=== PATIENT | male | born 1975 | race Caucasian/White ===

== ENCOUNTER 2017-01-14 12:35 | Emergency (ER) | payer OTHER ==
[2017-01-14 13:09] LABS: WBC 24.2 10x3/uL (4.8-10.8)
[2017-01-14 13:10] LABS: HEMATOCRIT 42.3 % (42.0-54.0); HEMOGLOBIN 15.2 g/dL (13.5-17.5); MCHC 35.9 g/dL (31.0-37.0); MCV 91.8 fL (80.0-100.0); PLATELET COUNT 253 10x3/uL (130-400); RBC 4.61 10x6/uL (4.20-6.10); RDW 13.4 % (11.5-14.5)
[2017-01-14 13:14] LABS: ALBUMIN 4.3 g/dL (3.4-5.0); ANION GAP 16.4 mmol/L (8-16); BILIRUBIN - TOTAL 1.13 mg/dL (0.2-1.3); CALCIUM 9.9 mg/dL (8.5-10.1); CARBON DIOXIDE 24.1 mmol/L (21.0-32.0); CREATININE - SERUM 1.7 mg/dL (0.6-1.3); POTASSIUM - SERUM 3.5 mmol/L (3.5-5.1); PROTEIN - SERUM 8.6 g/dL (6.4-8.2)
[2017-01-14 13:19] LABS: APPEARANCE CLEAR (CLEAR); BILIRUBIN NEGATIVE (NEGATIVE); COLOR YELLOW (YELLOW); GLUCOSE NEGATIVE (NEGATIVE); KETONE SMALL mg/dL (NEGATIVE); NITRITE NEGATIVE (NEGATIVE); PROTEIN 1+ mg/dL (NEGATIVE); SPECIFIC GRAVITY 1.015 (1.005-1.020); UROBILINOGEN NORMAL (NORMAL)
[2017-01-14 13:20] LABS: BACTERIA FEW /hpf (NONE SEEN); EPITHELIAL CELLS 0-5 /hpf (0-5); RED CELLS - URINE 0-5 /hpf (0-5); WHITE CELLS - URINE 0-5 /hpf (0-5)
[2017-01-14 13:33] LABS: LYMPHOCYTES 9 % (15-50); MONOCYTES 1 % (2-11); NEUTROPHILS 78 % (40-80); PLATELET ESTIMATE NORMAL
[2017-02-14 08:55] VITALS: BMI 25.7
== END 2017-01-14 15:56 | disposition home or self-care (01) ==
LOC: D.ER 12:35
PROVIDERS: Emergency Medicine
DX: R10.9 Unspecified abdominal pain (principal); F17.200 Nicotine dependence, unspecified, uncomplicated

== ENCOUNTER 2017-01-16 11:56 | Inpatient (IN) | payer OTHER ==
[~2017-01-16] VITALS: Ht 182.9 cm; Wt 91.8 kg
--- NOTE | ~2017-01-16 | HEMODYNAMI ---
PATIENT:DION BENTLEY MEDICAL RECORD: [id number] : 71 LOCATION: D.2224 ADMISSION DATE: 01/16/17 Generatedon:01/25/201712:18 Patient name: DION BENTLEY Patient #: [id number] SSN: D OB: 1975 Date of study: 01/25/2017 Page: Of Hemodynamic Procedure Report Patient Data Patient Demographics Procedure consent was obtained First Name: DION Gender: Male Last Name: SHEREE : 1975 Middle Initial: E Age: 41 year(s) Patient #: [id number] Race: Unknown Additional ID: [id number] Contact details [address]: [address] [place] [address] DRIVE State: [place] City: [place] Zip code: [address] Admission Admission Data Admission Date: 01/16/2017 Admission Time: 17:01 Room #: D.2224 Procedure Procedure Types Cath Procedure Peripheral Cath Diagnostic Procedure Miscellaneous Procedure Description Procedure Date Procedure Date: 01/25/2017 Procedure Start Time: 12:08 Procedure Staff Name Function Aureliano Flores RT Monitor Demetri Ford MD Performing Physician Lorna Smith RT Scrub Sridevi Cm RN Nurse Procedure Data Cath Procedure Fluoroscopy Diagnostic fluoroscopy Total fluoroscopy Time: 0.5 time: 0.5 min min Diagnostic fluoroscopy Total fluoroscopy dose: 45 dose: 45 mGy mGy Contrast Material Contrast Material Type Amount (ml) Isovue 300 12 Procedure Medications Medication Administration Route Dosage Heparin Flush Bag 1 bags (1000units/500ml NS) Hemodynamics Rest Pre Cath Intra NCS Post Cath Medications Time Medication Route Dose Verified Delivered Reason Notes Effecti veness by by 12:09:37 Heparin Flush 1 Demetri Mosquera Bag Logan Valencia MD (1000units/500ml NS) Procedure Log Time Note 11:27:43 Aureliano Flores RT (R) (CV) sent for patient. Start room use. 11:27:53 Time tracking: Regular hours 11:27:59 Plan of Care:Hemodynamics will remain stable., Cardiac rhythm will remain stable., Comfort level will be maintained., Respiratory function will remain adequate., Patient/ family verbilizes understanding of procedure., Procedure tolerated without complication., Recovers from procedure without complications.. 11:28:05 Patient received from Med/Surg to IR Alert and oriented. Tansferred to table in Supine position. 11:28:07 Correct patient and procedure confirmed by team. 11:28:09 Signed procedure consent form obtained from patient. 11:28:10 ECG and BP/O2 sat monitors applied to patient. 11:28:11 - 11:28:11 Full Disclosure recording started 11:28:13 Pre-procedure instructions explained to patient. 11:28:14 Pre-op teaching completed and patient verbalized understanding. 11:28:15 Family unavailable. 11:28:17 Patient NPO since Midnight. 11:28:34 Patient pain scale 0/10 no pain. 11:28:39 Alarms reviewed by Keo Edmonds 11:28:48 Left abdomen area was prepped with chlora-prep and draped in sterile fashion 11:28:59 Use device set IR Diagnostic 11:29:00 Sterile Angiographic Pack opened to sterile field. 11:29:00 Bag Decanter opened to sterile field. 12:07:43 Physician arrived 12:07:44 --------ALL STOP TIME OUT------ 12:07:45 Final Timeout: patient, procedure, and site verified with staff and physician. All members of the team are in agreement. 12:07:52 Left abdomen site verified by team. 12:07:58 Sedation plan: Local Anesthetic Medication:Lidocaine 12:08:16 Procedure started. 12:09:37 Heparin Flush Bag (1000units/500ml NS) 1 bags was administered by Demetri Ford MD; ; 12:14:43 Procedure ended.(Physican Out) 12:15:00 Fluoroscopy time 00.50 minutes. 12:15:04 Fluoroscopy dose: 45 mGy 12:15:04 Flurop Dose total: 45 12:16:15 Contrast amount:Isovue 300 12ml. 12:16:16 Sharps counted by scrub and verified by R.N. 12:16:20 Insertion/operative site no bleeding no hematoma. 12:16:26 Post-op/insertion site Left Abdominal area dressed using a 4 x 4 and Tegaderm. 12:16:33 Procedure and supply charges have been captured, reviewed, submitted an d are correct. 12:16:35 Post procedure instruction explained to patient.Patient verbalizes understanding. 12:16:42 Report given to Med/Surg. 12:16:46 Patient transfered to Med/Surg with Wheelchair. 12:17:29 Full Disclosure recording stopped Device Usage Item Name Manufacture Quantity Catalog Hospital Part Current Minimal Lot# / Number Charge Number Stock Stock Serial# Code Bag Decanter Microtek 1 [id number] [employer] Sterile Cardinal 1 [id number] Angiographic Health Pack Signature Audit [place] Time Signature Unsigned Intra-Procedure 01/25/2017 Aureliano 12:18:32 PM Mark RT (R) (CV) Signatures Monitor : Aureliano Signature : Mark RT Date : Time : [place] [id number]
[2017-01-16 12:48] LABS: BASOPHILS 0 % (0-2); EOSINOPHILS 0.4 % (0-7); HEMATOCRIT 43.4 % (42.0-54.0); HEMOGLOBIN 15.8 g/dL (13.5-17.5); IMMATURE GRANULOCYTES 0.7 % (0-5); LYMPHOCYTES 4.9 % (15-50); MCH 32.8 pg (26.0-34.0); MCHC 36.4 g/dL (31.0-37.0); MCV 90.2 fL (80.0-100.0); MEAN PLATELET VOLUME 10.4 fL (7.4-10.4); MONOCYTES 13.5 % (2-11); NEUTROPHILS 80.5 % (40-80); RBC 4.81 10x6/uL (4.20-6.10); RDW 13.3 % (11.5-14.5)
[2017-01-16 12:49] LABS: PLATELET COUNT 334 10x3/uL (130-400); WBC 8.9 10x3/uL (4.8-10.8)
[2017-01-16 13:12] LABS: ALBUMIN 3.8 g/dL (3.4-5.0); ANION GAP 19.4 mmol/L (8-16); BILIRUBIN - TOTAL 0.68 mg/dL (0.2-1.3); CALCIUM 10.3 mg/dL (8.5-10.1); CREATININE - SERUM 3.1 mg/dL (0.6-1.3); POTASSIUM - SERUM 3.4 mmol/L (3.5-5.1); PROTEIN - SERUM 8.9 g/dL (6.4-8.2)
[2017-01-16 13:24] LABS: AMYLASE - SERUM 41 U/L (25-115); LIPASE 82 U/L (73-393)
[2017-01-16 14:03] LABS: APPEARANCE CLOUDY (CLEAR); COLOR DK YELLOW (YELLOW); NITRITE NEGATIVE (NEGATIVE)
[2017-01-16 14:04] LABS: AMORPHOUS SEDIMENT <1+ /lpf (NONE SEEN); BACTERIA MODERATE /hpf (NONE SEEN); BILIRUBIN NEGATIVE (NEGATIVE); EPITHELIAL CELLS 0-5 /hpf (0-5); GLUCOSE NEGATIVE (NEGATIVE); GRANULAR CAST 0-5 /lpf (NONE SEEN); HYALINE CAST OCC /lpf (NONE SEEN); KETONE SMALL mg/dL (NEGATIVE); MUCUS <1+ /lpf (NONE SEEN); PROTEIN 1+ mg/dL (NEGATIVE); RED CELLS - URINE OCC /hpf (0-5); UROBILINOGEN NORMAL (NORMAL); WHITE CELLS - URINE 0-5 /hpf (0-5)
--- NOTE | 2017-01-16 18:15 | NUR ---
RECEIVED TO ROOM 2224 FROM ER VIA . ORIENTED TO ROOM AND CALL LIGHT SYSTEM. MED REC, PHARMACY, AND HISTORY OBTAINED AND PUT IN COMPUTER. FAMILY IN ROOM. CALL LIGHT IN REACH. WILL CONTINUE WITH PLAN OF CARE.
[2017-01-16] MEDS ORDERED: FLAGYL500 MG PO (18:41)
[2017-01-16] MEDS ORDERED: FLAGYL500 MG (18:41)
[2017-01-16] MEDS ORDERED: ULTRAM50 MG PO (18:42)
--- NOTE | 2017-01-16 20:00 | NUR ---
ASSESSMENT PER ADMIT PACKET. PT NPO SALINE LOCK PATENT RT FOREARM. SITE CLEAR. SR UP X2 CALL LIGHT WITHIN REACH. UP AD EULA TO BR VOIDS IN COMMODE. ABDOMEN DISTENDED AND FIRM HYPOACTIVE BS.
[2017-01-16 20:21] VITALS: BP 142/97
--- NOTE | 2017-01-16 20:27 | NUR ---
C/O PAIN NS FLUIDS SETUP AT 200CC'S/HR. TRAINING AND DEVELOPMENT ASSISTANT OF DILAUDID SETUP WITH SETTINGS AT 0.2MG Q10MIN W/4MG Q4H L/O. INSTRUCTED PATIENT ON HOW TO USE TRAINING AND DEVELOPMENT ASSISTANT.
--- NOTE | 2017-01-16 22:00 | NUR ---
INSERTED 14FR NGT TO RT NARE WITH EASE CONNECTED TO LIWS LARGE AMOUNT OF DARK GREEN DRAINAGE RETURNED.
[2017-01-16 22:17] VITALS: BP 142/97; BMI 28.1
--- NOTE | 2017-01-16 23:45 | NUR ---
STOOD AT BEDSIDE AND VOIDED IN URINAL.RESTING IN BED AT THIS TIME. CALL LIGHT WITHIN REACH SR UP X2
[2017-01-17 03:50] VITALS: BP 139/60
[2017-01-17 05:40] LABS: HEMOGLOBIN 12.8 g/dL (13.5-17.5); MCH 32.1 pg (26.0-34.0); MCHC 35.6 g/dL (31.0-37.0); MCV 90.2 fL (80.0-100.0); MEAN PLATELET VOLUME 10.6 fL (7.4-10.4); PLATELET COUNT 289 10x3/uL (130-400); RBC 3.99 10x6/uL (4.20-6.10); RDW 13.5 % (11.5-14.5)
[2017-01-17 05:47] LABS: WBC 4.5 10x3/uL (4.8-10.8)
[2017-01-17 05:56] LABS: ANION GAP 16.3 mmol/L (8-16); CARBON DIOXIDE 24.2 mmol/L (21.0-32.0); CREATININE - SERUM 3.2 mg/dL (0.6-1.3); POTASSIUM - SERUM 3.5 mmol/L (3.5-5.1)
[2017-01-17 06:58] LABS: EOSINOPHILS 7 % (0-7); LYMPHOCYTES 26 % (15-50); MONOCYTES 13 % (2-11); NEUTROPHILS 31 % (40-80); PLATELET ESTIMATE NORMAL; ROULEAUX OCC
--- NOTE | 2017-01-17 07:10 | NUR ---
REPORT RECEIVED FROM OPERATOR ASSISTANT I CEMENTING NURSE. CALL LIGHT IN REACH.
--- NOTE | 2017-01-17 08:27 | NUR ---
ASSESSMENT COMPLETED. NGT TO LIS. OFFERED SCDs AND EXPLAINED USE. VERBALIZED UNDERSTANDING. CALL LIGHT IN REACH. WILL CONTINUE WITH PLAN OF CARE.
[2017-01-17 08:38] VITALS: BP 130/83
--- NOTE | 2017-01-17 09:31 | NUR ---
PT SEEN. NG NOTED TO RIGHT NARE DRAINING GREEN LIQUID. CANISTER CHANGED. PT STATES PAIN IS CONTROLLABLE FOR NOW WITH CARD HAND. IS NOT PASSING GAS-DOES HAS CRAMPS AT TIMES TO LOWER ABDOMINAL AREA. CURRENTLY EATING ICE CHIPS. CALL LIGHT IN REACH
--- NOTE | 2017-01-17 09:54 | NUR ---
DAVID MATOS AND LORA ROSENBAUM. CALL LIGHT IN REACH.
--- NOTE | 2017-01-17 11:15 | NUR ---
ZOSYN IVPB. BED BATH GIVEN AND LINENS CHANGED PER ARTIFICIAL FLOWER MAKER.
--- NOTE | 2017-01-17 11:28 | NUR ---
FILLED UP 2 NGT CANNISTERS IN 2 HOURS. DO NOT WANT TO TURN OFF AT THIS TIME IN FEAR THAT PATIENT WILL GET SICK AND VOMIT SO WILL START NEXT DOSE OF FLORAJEN.
[2017-01-17 12:56] VITALS: BP 138/93
--- NOTE | 2017-01-17 13:05 | NUR ---
RESTING WITH EYES CLOSED. RESP EVEN AND UNLABORED. CALL LIGHT IN REACH.
[2017-01-17 13:27] VITALS: Ht 182.9 cm; Wt 91.8 kg
--- NOTE | 2017-01-17 14:32 | NUR ---
MAGALY NOTE: CM CALLED THE [facility] BED CONTROL AND THEY STATED THAT THEY HAD NO BEDS AND TO CALL TOMORROW.
--- NOTE | 2017-01-17 15:35 | NUR ---
CUP OF ICE TAKEN TO PATIENT PER HIS REQUEST.
--- NOTE | 2017-01-17 15:57 | NUR ---
IV FLAGYL. LOW GRADE FEVER OF 100.1. WILL GIVE INCENTIVE SPIROMETER TO USE TO HELP PREVENT PNEUMONIA.
--- NOTE | 2017-01-17 16:16 | NUR ---
INCENTIVE SPIROMETER GIVEN TO PATIENT AND EXPLAINED USE WITH RETURN DEMONSTRATION.
[2017-01-17 16:29] VITALS: BP 149/97
--- NOTE | 2017-01-17 18:56 | NUR ---
IVPB ZOSYN. NO CHANGES IN INITIAL ASSESSMENT. CALL LIGHT IN REACH. FAMILY IN ROOM. WILL CONTINUE WITH PLAN OF CARE.
[2017-01-17 20:00] VITALS: BP 143/97
--- NOTE | 2017-01-17 23:22 | NUR ---
REC'D. AT [facility]. SITTING IN UPRIGHT POSITION.NG TUBE TO LOW INTERMITT.SUCTION. HAS 3 CUPS ICE AT BEDSIDE. STATES THEY SAID I COULD HAVE ALL THE ICE I WANTED.EXPLAINED USUALLY THEY SAY SPARINGLY TO MOISTEN YOUR MOUTH.WILL CONTINUE TO MONITOR FOR ANY CHGES.AND FOLLOW CURRENT PLAN OF CARE.
[2017-01-18] VITALS: BP 146/84
[2017-01-18 04:00] VITALS: BP 129/84
--- NOTE | 2017-01-18 05:42 | NUR ---
PATIENT RESTING IN BED WITH EYES CLOSED AND NO VISIBLE SIGNS OF DISTRESS. BED IN LOWEST POSITION AND CALL LIGHT WITHIN REACH.
[2017-01-18 06:05] LABS: BASOPHILS 0.2 % (0-2); EOSINOPHILS 3.9 % (0-7); HEMOGLOBIN 11.9 g/dL (13.5-17.5); IMMATURE GRANULOCYTES 0.6 % (0-5); LYMPHOCYTES 14.2 % (15-50); MCV 91.4 fL (80.0-100.0); MEAN PLATELET VOLUME 10.4 fL (7.4-10.4); MONOCYTES 21.6 % (2-11); NEUTROPHILS 59.5 % (40-80); PLATELET COUNT 287 10x3/uL (130-400); RBC 3.72 10x6/uL (4.20-6.10); RDW 13.8 % (11.5-14.5); WBC 5.1 10x3/uL (4.8-10.8)
[2017-01-18 06:36] LABS: CALCIUM 8.8 mg/dL (8.5-10.1); CARBON DIOXIDE 22.2 mmol/L (21.0-32.0); POTASSIUM - SERUM 3.2 mmol/L (3.5-5.1)
[2017-01-18 06:44] LABS: CREATININE - SERUM 2.3 mg/dL (0.6-1.3)
--- NOTE | 2017-01-18 07:25 | NUR ---
REPORT RECEIVED FROM COMMUNITY ENGAGEMENT LEADER NURSE. CALL LIGHT IN REACH.
--- NOTE | 2017-01-18 08:30 | NUR ---
ASSESSMENT COMPLETED. REFUSES SCDs. CALL LIGHT IN REACH. WILL CONTINUE WITH PLAN OF CARE.
[2017-01-18 08:36] VITALS: BP 144/95
--- NOTE | 2017-01-18 09:18 | NUR ---
CM REASSESSMENT NOTE: CM CALLED AND SPOKE TO [facility] AT [place] AND NO BEDS ARE AVAILABLE AT THIS TIME. [facility] ASKED FOR DR. CALIXTO NUMBER IN CASE A DOC TO DOC IS NEEDED FOR TRANSFER WHEN BED BECOMES AVAILABLE.
--- NOTE | 2017-01-18 10:30 | NUR ---
MEDS ADMINISTERED PER ORDER. CALL LIGHT IN REACH
--- NOTE | 2017-01-18 11:48 | NUR ---
2ND BAG OF POTASSIUM INITIATED. FLORAJEN PO WITH SIP OF WATER. NGT OFF FOR NOW.
--- NOTE | 2017-01-18 13:57 | NUR ---
PT NOTE-NG CANISTER CHANGED-800 CC LIQ GREEN DRAINAGE NOTED. NG TO RIGHT NARES- PT STATES HAD BM X 2 YESTERDAY-BOWEL SOUNDS HEARD A "TINKLING" SOUND IN ALL QUADS. SURGICAL COORDINATOR IN USE-STATES PAIN IN CONTROLLED. CALL LIGHT IN REACH
[2017-01-18 14:20] VITALS: BP 142/88
--- NOTE | 2017-01-18 14:40 | NUR ---
IV FLUIDS CHANGED PER ORDER. 3RD ABG OF KCL INITIATED.
--- NOTE | 2017-01-18 14:50 | NUR ---
REPORT GIVEN TO ERIC BURCIAGA.
--- NOTE | 2017-01-18 15:45 | NUR ---
PT C/O DISCOMFORT IN BACK OF THROAT. NG CHECKED WITH AIR-TUBE IN BACK OF THROAT. NG ADVANCED PT SIPPED WATER. IMMEDIATE RETURN OF GREEN LIQ NOTED APPROX. 400CC. PT STATES HE FEELS BETTER
[2017-01-18 16:23] VITALS: BP 142/95
--- NOTE | 2017-01-18 16:24 | NUR ---
Patient Name: DION BENTLEY Admission Status: ER Accout number: [id number] Admission Date: 01-16-2017 : 1975 Admission Diagnosis:DVTRCLI OF INTEST, PART UNSP, W/O PERF OR ABSCESS W/O B Attending: RODRICK GALLEGOS Current LOS: 2 Anticipated DC Date: Planned Disposition: Primary Insurance: [employer] Discharge Planning Comments: CM MET WITH PATIENT REGARDING D/C NEEDS AND PLANS. PATIENT STATED HE LIVES ALONE AND HIS FRIEND (PETER) WILL BE DRIVING HIM HOME AT DISCHARGE. PATIENT STATED HE HAS NO STEPS TO ENTER HOME AND HAS STAIRS INSIDE WITH RAILING. [facility] [place] AND PHARMACY IS [email or web address] ON [address]. PATIENT IS INDEPENDENT WITH HIS CARE AND HAS NO DME AT HOME. PATIENT REFUSED HOME HEALTH AT THIS TIME. CM WILL CONTINUE TO FOLLOW PATIENT WITH D/C NEEDS AND PLANS. PCP [facility] ON [address]- [phone] PETER (FRIEND) [phone] Ceramics Machine Operator: Harper Wan Is the patient Alert and Oriented? Yes 0 * How many steps to enter\exit or inside your home? 0 0 * PCP [facility] 0 * Pharmacy [email or web address] ON [address] 0 * Preadmission Environment Home Alone 0 * ADLs Independent 0 * Equipment None 0 * List name and contact numbers for known caregivers / representatives who currently or will assist patient after discharge: PETER (FRIEND) [phone] 0 * Community resources currently utilized None 0 * Additional services required to return to the preadmission environment? Yes 0 * Can the patient safely return to the preadmission environment? Yes 0 * Has this patient been hospitalized within the prior 30 days at any hospital? No 0 Grand Total: 0
--- NOTE | 2017-01-18 20:39 | NUR ---
REC'D. SAME COMPLAINT OF SORE THROAT BLOATING ETC.PLACEMENT CHECKED USING TWO TECHNIQUES AIR AND INSTILING H20 WITH GOOD PLACEMENT.DRAINING LITE GREENISH COLORED EMESIS.FAINT BOWELL SOUNDS LOWER QUAD. BILAT. DENIES NAUSEA. ENCOURAGED TO AMB. WILL CONTINUE TO MONITOR FOR ANY CHGES. AND FOLLOW CURRENT PLAN OF CARE
[2017-01-18 23:09] VITALS: BP 154/96
[2017-01-19 01:20] VITALS: BP 113/57
--- NOTE | 2017-01-19 07:56 | NUR ---
REPORT RECEIVED FROM SPORTS EQUIPMENT REPAIRER NURSE. CALL LIGHT IN REACH.
--- NOTE | 2017-01-19 08:10 | NUR ---
ASSESSMENT COMPLETED. IV TUBING CHANGED PER HOSPITAL PROTOCOL. STILL REFUSES SCDs. NGT TO LIS. CALL LIGHT IN REACH. WILL CONTINUE WITH PLAN OF CARE.
--- NOTE | 2017-01-19 09:04 | NUR ---
AM MEDS ADMINISTERED. DILAUDID 0.4 MG IV BOLUS PER PHYSICS TECHNICAL OFFICER. NGT CLAMPED AND PATIENT IS AMBULATING IN HALLWAY.
[2017-01-19 09:07] VITALS: BP 144/90
--- NOTE | 2017-01-19 10:13 | NUR ---
KARON MATOS. NO NEEDS VOICED AT THIS TIME.
--- NOTE | 2017-01-19 12:05 | NUR ---
VISITOR AT BEDSIDE. NO NEEDS VOICED AT THIS TIME.
[2017-01-19 12:21] LABS: BASOPHILS 0.1 % (0-2); EOSINOPHILS 1.9 % (0-7); HEMATOCRIT 33.2 % (42.0-54.0); HEMOGLOBIN 11.6 g/dL (13.5-17.5); IMMATURE GRANULOCYTES 0.8 % (0-5); LYMPHOCYTES 11.2 % (15-50); MCHC 34.9 g/dL (31.0-37.0); MCV 91.5 fL (80.0-100.0); MEAN PLATELET VOLUME 9.5 fL (7.4-10.4); MONOCYTES 16.8 % (2-11); NEUTROPHILS 69.2 % (40-80); PLATELET COUNT 247 10x3/uL (130-400); RBC 3.63 10x6/uL (4.20-6.10)
[2017-01-19 12:31] LABS: WBC 8.3 10x3/uL (4.8-10.8)
[2017-01-19 12:38] LABS: ANION GAP 13.9 mmol/L (8-16); CALCIUM 8.1 mg/dL (8.5-10.1); CARBON DIOXIDE 24.2 mmol/L (21.0-32.0); CREATININE - SERUM 1.5 mg/dL (0.6-1.3); POTASSIUM - SERUM 3.1 mmol/L (3.5-5.1)
[2017-01-19 12:51] VITALS: BP 137/85
--- NOTE | 2017-01-19 13:08 | NUR ---
PT NOTE-PT STILL WITH NG TUBE IN RIGHT NARE. STILL DRAINING GREENISH DRAINAGE. STATES PAIN IS CONTROLLABLE WITH PSYCHOLOGICAL ASSISTANT. CALL LIGHT IN REACH
--- NOTE | 2017-01-19 13:19 | NUR ---
NGT CLAMPED. NASIR PO WITH SIP OF WATER. SUPPLIES GIVEN SO PATIENT CAN TAKE SHOWER WHILE HE IS UNCLAMPED.
--- NOTE | 2017-01-19 13:49 | NUR ---
NUTRITION F/U CHART REVIEWED. PT REMAINS NPO AT THIS TIME. WILL CONTINUE TO MONITOR PT PROGRESS, PROVIDE DIET PER MD. RD FOLLOWING
--- NOTE | 2017-01-19 14:20 | NUR ---
IV AND NGT HOOKED BACK UP.
--- NOTE | 2017-01-19 16:48 | NUR ---
FLAGYL 500 MG IVPB. NO NEEDS VOICED AT THIS TIME. CALL LIGHT IN REACH.
[2017-01-19 17:07] VITALS: BP 132/87
--- NOTE | 2017-01-19 19:00 | NUR ---
REPORT RECEIVED AND CARE OF PT ASSUMED. PT LYING IN SUPINE POSITION VISITING WITH FAMILY MEMBERS. IV IN RIGHT FA PATENT WITH D5 1/2 NS W/ 20 KCL INFUSING AT 125 ML / HR. GARBAGE COLLECTOR / DILAUDID IN USE FOR PAIN CONTROL. NG TUBE IN LEFT NARE TO LIS. WILL MONITOR CLOSLEY FOR NEEDS.
[2017-01-19 20:00] VITALS: BP 123/83
--- NOTE | 2017-01-19 21:20 | NUR ---
REFILLED ARMHOLE BASTER HAND WITH NEW VIAL OF DILAUDID.
--- NOTE | 2017-01-19 21:30 | NUR ---
GAVE BOLUS OF DILAUDID 0.4 MG VIA SMALL BATTERY PLATE ASSEMBLER PER PRN ORDER. WILL MONITOR FOR EFFECTIVENESS.
[2017-01-20] VITALS: BP 125/81
--- NOTE | 2017-01-20 00:20 | NUR ---
PT RESTING IN SUPINE POSITION WITH EYES CLOSED AND EASY RESPIRATIONS. WILL CONTINUE TO MONITOR FOR NEEDS. CALL LIGHT WITHIN REACH.
[2017-01-20 04:00] VITALS: BP 133/89
[2017-01-20 06:34] LABS: BASOPHILS 0.2 % (0-2); EOSINOPHILS 1.5 % (0-7); HEMOGLOBIN 11.9 g/dL (13.5-17.5); LYMPHOCYTES 10.1 % (15-50); MCH 32.1 pg (26.0-34.0); MCV 91.6 fL (80.0-100.0); MEAN PLATELET VOLUME 10.2 fL (7.4-10.4); MONOCYTES 12.7 % (2-11); NEUTROPHILS 74.5 % (40-80); RBC 3.71 10x6/uL (4.20-6.10); RDW 14.1 % (11.5-14.5)
[2017-01-20 06:48] LABS: PLATELET COUNT 300 10x3/uL (130-400); WBC 10.8 10x3/uL (4.8-10.8)
[2017-01-20 06:57] LABS: ANION GAP 14.7 mmol/L (8-16); CALCIUM 8.5 mg/dL (8.5-10.1); CARBON DIOXIDE 23.3 mmol/L (21.0-32.0); CREATININE - SERUM 1.4 mg/dL (0.6-1.3)
[2017-01-20 08:48] VITALS: BP 133/88
--- NOTE | 2017-01-20 08:55 | NUR ---
ASSESSMENT COMPLETED. REFUSES SCDs. CALL LIGHT IN REACH. WILL CONTINUE WITH PLAN OF CARE.
--- NOTE | 2017-01-20 10:24 | NUR ---
AM MEDS ADMINISTERED. CALL LIGHT IN REACH.
--- NOTE | 2017-01-20 12:13 | NUR ---
NASIR PO. NG TUBE CLAMPED FOR 30*60 MINUTES. VISITOR IN ROOM. CALL LIGHT IN REACH.
--- NOTE | 2017-01-20 13:08 | NUR ---
NGT BACK TO LIS. DENIES NEEDS. CALL LIGHT IN REACH.
[2017-01-20 13:11] VITALS: BP 128/84
--- NOTE | 2017-01-20 15:23 | NUR ---
SITTING IN CHAIR AT THIS TIME. NGT TO LIS. BOWEL SOUNDS ARE ACTIVE X4. DILAUDID CASTINGS DRAFTER IN USE FOR PAIN CONTROL. CHIDI DARBY, IN ROOM TO DO IV ABX AND CHANGE OUT CASTINGS DRAFTER VIAL. CALL LIGHT IN REACH.
[2017-01-20 16:21] VITALS: BP 134/89
--- NOTE | 2017-01-20 17:00 | NUR ---
RESTING WITH EYES CLOSED. RESP EVEN AND UNLABORED. CALL LIGHT IN REACH.
--- NOTE | 2017-01-20 18:09 | NUR ---
DAVID IVPB. NO CHANGES IN INITIAL ASSESSMENT. CALL LIGHT IN REACH. STILL REFUSES SCDs. WILL CONTINUE WITH PLAN OF CARE.
[2017-01-20 20:00] VITALS: BP 145/85
[2017-01-21] VITALS: BP 118/80
--- NOTE | 2017-01-21 02:59 | NUR ---
RN NOTE: PT RESTING IN SEMI PURCELL'S POSITION WITH EYES CLOSED. IV IN RIGHT FA PATENT WITH D5 1/2 W/ 20 KCL INFUSING. HR GENERALIST / DILAUDID IN USI FOR PAIN CONTROL. NG TUBE TO LEFT NARE TO LIS. WILL CONTINUE TO MONITOR FOR NEEDS.
[2017-01-21 04:00] VITALS: BP 122/83
[2017-01-21 06:23] LABS: BASOPHILS 0.2 % (0-2); EOSINOPHILS 1.8 % (0-7); HEMATOCRIT 35.6 % (42.0-54.0); HEMOGLOBIN 12.4 g/dL (13.5-17.5); LYMPHOCYTES 11.6 % (15-50); MCH 32.1 pg (26.0-34.0); MCHC 34.8 g/dL (31.0-37.0); MCV 92.2 fL (80.0-100.0); MEAN PLATELET VOLUME 9.7 fL (7.4-10.4); MONOCYTES 11.1 % (2-11); NEUTROPHILS 74.3 % (40-80); PLATELET COUNT 311 10x3/uL (130-400); RBC 3.86 10x6/uL (4.20-6.10); RDW 14.1 % (11.5-14.5); WBC 12.5 10x3/uL (4.8-10.8)
[2017-01-21 06:36] LABS: ANION GAP 13.6 mmol/L (8-16); CALCIUM 8.3 mg/dL (8.5-10.1); CARBON DIOXIDE 26.5 mmol/L (21.0-32.0); CREATININE - SERUM 1.3 mg/dL (0.6-1.3); POTASSIUM - SERUM 3.1 mmol/L (3.5-5.1)
[2017-01-21 10:10] VITALS: BP 128/89
--- NOTE | 2017-01-21 10:12 | NUR ---
AWAKE AND ALERT. ORIENTED X3. NO C/O AT THIS TIME. LUNGS ARE CLEAR BILATERALLY, NO COUGH NOTED. SKIN IS INTACT WITHOUT REDNESS. IV TO RIGHT FOREARM IS PATENT WITHOUT REDNESS AT INSERTION SITE. NG TO LEFT NARE PATENT WITH DARK GREENISH DISCHARGE. DENIES NEEDS.
--- NOTE | 2017-01-21 11:00 | NUR ---
NG REMAINS OFF AT THIS TIME. NO SIGNS OF NAUSEA OR BLOATING. WILL MONITOR.
--- NOTE | 2017-01-21 11:24 | NUR ---
TOOK AM MEDS WITHOUT DIFFICULTY. NG TUBE IS OFF AT THIS TIME. NO C/O NAUSEA AT THIS TIME.
--- NOTE | 2017-01-21 12:00 | NUR ---
NG TUBE REMAINS OFF AT THIS TIME. NO C/O NAUSEA.
--- NOTE | 2017-01-21 13:00 | NUR ---
NG TUBE REMAINS CLAMPED, NO C/O NAUSEA AT THIS TIME.
[2017-01-21 13:39] VITALS: BP 123/73
--- NOTE | 2017-01-21 14:27 | NUR ---
NG TUBE D/C WITHOUT DIFFICULTY. PATIENT STATED IT WAS A HUGE RELIEF TO HAVE IT OUT.
[2017-01-21 16:51] VITALS: BP 130/84
--- NOTE | 2017-01-21 18:22 | NUR ---
UP AD EULA IN ROOM. HAS EATEN POPSICLE X2 THIS AFTERNOON WITHOUT ADVERSE EFFECTS. NO CHANGES NOTED. DENIES NEEDS.
--- NOTE | 2017-01-21 19:00 | NUR ---
REPORT RECEIVED AND CARE OF PT ASSUMED. PT LYING IN SEMI PURCELL'S POSITION WATCHING TV...FEELING BETTER AND VERY HAPPY TO HAVE NG TUBE OUT. IV IN RIGHT FA PATENT WITH D5 NS W/ 20 KCL INFUSING AT 75 ML / HR. ACTUARIAL CLERK - DILAUDID IN USE FOR PAIN CONTROL. WILL MONITOR CLOSELY FOR NEEDS.
[2017-01-21 20:00] VITALS: BP 123/87
--- NOTE | 2017-01-21 20:15 | NUR ---
GAVE CUP OF ICE CHIPS PER DIET ORDER.
--- NOTE | 2017-01-21 20:45 | NUR ---
HS MEDICATIONS GIVEN. WILL CONTINUE TO MONITOR FOR NEEDS.
--- NOTE | 2017-01-21 21:15 | NUR ---
PT AMBULATING IN THE HALLWAY...MADE 4+ TRIPS AROUND 2ND FLOOR.
[2017-01-22] VITALS: BP 117/77; BP 118/81
[2017-01-22 04:00] VITALS: BP 112/79
--- NOTE | 2017-01-22 07:15 | NUR ---
REPORT RECEIVED FROM MANAGER GOVERNMENT NURSE. CALL LIGHT IN REACH.
--- NOTE | 2017-01-22 08:05 | NUR ---
ASSESSMENT COMPLETED. DISCONNECTED PATIENT SO HE CAN SHOWER. LINENS CHANGED. REFUSES SCDs. CALL LIGHT IN REACH. WILL CONTINUE WITH PLAN OF CARE.
[2017-01-22 08:20] VITALS: BP 133/85
--- NOTE | 2017-01-22 09:00 | NUR ---
RESTING QUIETLY IN BED. DENIES ANY NEEDS AT THIS TIME.
[2017-01-22] MEDS ORDERED: LEVAQUIN500 MG PO (09:17)
[2017-01-22 09:33] LABS: BASOPHILS 0.2 % (0-2); EOSINOPHILS 1.1 % (0-7); HEMATOCRIT 39.1 % (42.0-54.0); HEMOGLOBIN 13.7 g/dL (13.5-17.5); IMMATURE GRANULOCYTES 1.2 % (0-5); LYMPHOCYTES 10.1 % (15-50); MCH 32.5 pg (26.0-34.0); MCV 92.7 fL (80.0-100.0); MEAN PLATELET VOLUME 9.9 fL (7.4-10.4); MONOCYTES 10.1 % (2-11); NEUTROPHILS 77.3 % (40-80); PLATELET COUNT 358 10x3/uL (130-400); RBC 4.22 10x6/uL (4.20-6.10); WBC 12.9 10x3/uL (4.8-10.8)
[2017-01-22 09:40] LABS: ANION GAP 12.4 mmol/L (8-16); CREATININE - SERUM 1.5 mg/dL (0.6-1.3); POTASSIUM - SERUM 3.4 mmol/L (3.5-5.1)
--- NOTE | 2017-01-22 10:14 | NUR ---
LORA ROSENBAUM AND DAVID MATOS. CALL LIGHT IN REACH.
--- NOTE | 2017-01-22 11:16 | NUR ---
KARON IVPB. NASIR PO. COMPTROLLER DC'D PER MD ORDER. CALL LIGHT IN REACH. GIRLFRIEND AT BEDSIDE.
--- NOTE | 2017-01-22 13:50 | NUR ---
NO NEEDS VOICED AT THIS TIME. CALL LIGHT IN REACH.
--- NOTE | 2017-01-22 15:15 | NUR ---
C/O ABDOMINAL PAIN. WILL CALL MD FOR ORDER.
--- NOTE | 2017-01-22 15:36 | NUR ---
NEW ORDERS RECEIVED FROM DR. JAEGER. DILAUDID AND DANIEL ROSENBAUM. ZOSYN IVPB. CALL LIGHT IN REACH.
--- NOTE | 2017-01-22 17:29 | NUR ---
STATES PAIN IS DOWN TO A 2 AT THIS TIME. FLAGYL 500 MG IVPB. GIRLFRIEND AT BEDSIDE. CALL LIGHT IN REACH.
--- NOTE | 2017-01-22 18:11 | NUR ---
NO CHANGES IN INITIAL ASSESSMENT. STILL REFUSES SCDs. CALL LIGHT IN REACH. WILL CONTINUE WITH PLAN OF CARE.
--- NOTE | 2017-01-22 19:00 | NUR ---
REPORT RECEIVED AND CARE OF PT ASSUMED. PT LYING IN SEMI PURCELL'S POSITION WITH EYES CLOSED. IV IN RIGHT FA PATENT WITH D5NW W/ 20 KCL INFUSING AT 30 ML / HR. WILL MONITOR CLOSELY FOR NEEDS.
[2017-01-22 20:00] VITALS: BP 117/77; BP 124/86
--- NOTE | 2017-01-22 22:00 | NUR ---
PT REPORTS PAIN AT 10/10 AND MOANING AND THRASHING IN BED. GAVE PRN EARLY FOR SEVERE PAIN. WILL MONITOR FOR EFFECTIVENESS.
--- NOTE | 2017-01-22 23:00 | NUR ---
PT STILL C/O SEVERE PAIN AND BLOATING. ABDOMIN DISTENDED AND TIGHT. GAVE ZOFRAN 4 MG IVP AND ADVISED PT TO AMBULATE IF HE COULD TOLERATE.
--- NOTE | 2017-01-22 23:35 | NUR ---
PT UP AMBULATING THE HALLS...WENT AT LEAST 3 LAPS AROUND UNIT...BACK IN ROOM NOW TO RESTROOM. WILL CONTINUE TO MONITOR CLOSELY.
[2017-01-23] VITALS (12 sets, daily range): BP systolic 114–135; BP diastolic 71–97
--- NOTE | 2017-01-23 03:03 | NUR ---
GAVE DILAUDID 0.5 MG IVP PER PT REQUEST FOR PAIN AT LEVEL 7/10 IN ABDOMEN. WILL MONITOR FOR EFFECTIVENESS.
--- NOTE | 2017-01-23 07:05 | NUR ---
REPORT RECEIVED FROM FRONT SERVICES AGENT NURSE. CALL LIGHT IN REACH.
--- NOTE | 2017-01-23 07:34 | NUR ---
ASSESSMENT COMPLETED. IS IN EXCRUCIATING PAIN OF 10. DILAUDID, ZOFRAN, TORADOL, AND PROTONIX IVP. FLAGYL IVPB. WILL CONTINUE TO MONITOR. ALSO STIL REFUSES SCDs. CALL LIGHT IN REACH.
--- NOTE | 2017-01-23 07:45 | NUR ---
STATES HE IMMEDIATELY STARTING FEELING MUCH BETTER AFTER IV MEDS ADMINISTERED.
--- NOTE | 2017-01-23 08:32 | NUR ---
AMBULATING IN HALLWAY. TOLERATING WELL.
--- NOTE | 2017-01-23 09:38 | NUR ---
PAIN IS BACK UP TO A 10. NORCO PO. FAMILY IN ROOM. CALL LIGHT IN REACH.
--- NOTE | 2017-01-23 11:35 | NUR ---
NASIR PO. PATIENT IN BED IN POSITION ABOUT PAIN. STATES IT IS STILL AT A 10. DILAUDID 0.5 MG SIVP. CALL LIGHT IN REACH.
--- NOTE | 2017-01-23 12:42 | NUR ---
PAIN IS NOW AT A 5. FAMILY IN ROOM. CALL LIGHT IN REACH. INSTRUCTED PATIENT NOT TO EAT OR DRINK ANYTHING AT THE MOMENT UNTIL SEEN PER DR. GALLEGOS SINCE IT CONTINUES TO HURT HIS STOMACH.
[2017-01-23 14:05] LABS: INR 1.33 (0.85-1.17); PROTIME 16.4 SECONDS (11.6-15.0)
--- NOTE | 2017-01-23 14:10 | NUR ---
TO SPECIALS VIA BED.
--- NOTE | 2017-01-23 15:15 | NUR ---
BACK IN ROOM. VSS. ABSCESS DRAIN. PROCALAMINE AND PULP PILER INITIATED PER ORDER. CALL LIGHT IN REACH.
--- NOTE | 2017-01-23 17:28 | NUR ---
PT RESTING IN ROOM, NO SIGNS OF ACUTE DISTRESS. BED IN LOWEST POSITION, SIDE RAILS UP X 2, CALL LIGHT WITHIN REACH.
--- NOTE | 2017-01-23 17:31 | NUR ---
DAVID MATOS. CALL LIGHT IN REACH.
--- NOTE | 2017-01-23 18:23 | NUR ---
NO CHANGES IN INITIAL ASSESSMENT. STILL REFUSES SCDs. CALL LIGHT IN REACH. WILL CONTINUE WITH PLAN OF CARE.
--- NOTE | 2017-01-23 19:00 | NUR ---
REPORT RECEIVED AND CARE OF PT ASSUMED. PT LYING IN LOW PURCELL'S POSITION WATCHING TV. IV IN RIGHT FA PATENT WITH PROCALAMINE INFUSING AT 125 ML / HR, NS INFUSING AT 30 ML / HR, LIPIDS INFUSING AT 30 ML / HR AND A TELEPHONE COLLECTOR WITH DILAUDID IN USE FOR PAIN CONTROL. WILL MONITOR CLOSELY FOR NEEDS.
--- NOTE | 2017-01-23 20:42 | NUR ---
HS MEDICATIONS GIVEN. WILL CONTINUE TO MONITOR FOR NEEDS.
--- NOTE | 2017-01-24 00:15 | NUR ---
PT RESTING QUIELTY AT THIS TIME WITH PAIN WELL CONTROLLED WITH MANAGER PACKAGE. IV PATENT. WILL CONTINUE TO MONITOR FOR NEEDS. CALL LIGHT WITHIN REACH.
[2017-01-24 01:52] VITALS: BP 121/79
[2017-01-24 05:22] VITALS: BP 123/84
[2017-01-24 05:59] LABS: BASOPHILS 0.1 % (0-2); EOSINOPHILS 2.1 % (0-7); HEMATOCRIT 32.7 % (42.0-54.0); HEMOGLOBIN 11.2 g/dL (13.5-17.5); IMMATURE GRANULOCYTES 0.6 % (0-5); LYMPHOCYTES 12.1 % (15-50); MCH 31.9 pg (26.0-34.0); MCHC 34.3 g/dL (31.0-37.0); MCV 93.2 fL (80.0-100.0); MEAN PLATELET VOLUME 10.1 fL (7.4-10.4); MONOCYTES 9.1 % (2-11); RBC 3.51 10x6/uL (4.20-6.10); RDW 13.9 % (11.5-14.5)
[2017-01-24 06:13] LABS: PLATELET COUNT 280 10x3/uL (130-400); WBC 8.7 10x3/uL (4.8-10.8)
[2017-01-24 06:29] LABS: CARBON DIOXIDE 29.1 mmol/L (21.0-32.0); CREATININE - SERUM 1.3 mg/dL (0.6-1.3); POTASSIUM - SERUM 3.1 mmol/L (3.5-5.1)
--- NOTE | 2017-01-24 07:45 | NUR ---
ASSESSMENT PER FLOW SHEET.PT WITHOUT DISTRESS.RIGHT LOWER ABD DRAIN IN PLACE WITH BROWNISH/PINK MILKY COLORED DRAINAGE NOTED IN BAG. DENIES NEEDS.NPO EXCEPT FOR ICE CHIPS.CALL LIGHT IN REACH
[2017-01-24 08:13] VITALS: BP 152/88
[2017-01-24 12:08] VITALS: BP 122/81
--- NOTE | 2017-01-24 13:11 | NUR ---
UP TO SHOWER. REMAINS WITHOUT DISTRESS.REPORTS LARGE STOOL THIS AM.MONITOR
[2017-01-24 16:03] VITALS: BP 121/79
[2017-01-24 20:00] VITALS: BP 117/79
[2017-01-25] VITALS: BP 116/71
--- NOTE | 2017-01-25 02:00 | NUR ---
PT RESTING IN BED WITH NO DISTRESS. RESPIRATIONS EVEN AND UNLABORED. SIDE RAILS X 2. BED LOW. CALL LIGHT IN REACH.
[2017-01-25 04:00] VITALS: BP 118/81
[2017-01-25 05:36] LABS: BASOPHILS 0.2 % (0-2); EOSINOPHILS 2.5 % (0-7); HEMOGLOBIN 11.2 g/dL (13.5-17.5); IMMATURE GRANULOCYTES 0.7 % (0-5); MCH 31.9 pg (26.0-34.0); MCHC 33.9 g/dL (31.0-37.0); MEAN PLATELET VOLUME 10.2 fL (7.4-10.4); MONOCYTES 11.9 % (2-11); NEUTROPHILS 70.7 % (40-80); PLATELET COUNT 321 10x3/uL (130-400); RBC 3.51 10x6/uL (4.20-6.10); RDW 14.1 % (11.5-14.5); WBC 8.1 10x3/uL (4.8-10.8)
[2017-01-25 05:45] LABS: CALC OSMOLALITY 274 mosm/kg (275-300); CALCIUM 7.9 mg/dL (8.5-10.1); CARBON DIOXIDE 28.8 mmol/L (21.0-32.0); CHLORIDE - SERUM 101 mmol/L (98-107); CREATININE - SERUM 1.1 mg/dL (0.6-1.3); GLUCOSE 99 mg/dL (74-106); POTASSIUM - SERUM 3.5 mmol/L (3.5-5.1); SODIUM 137 mmol/L (136-145); UREA NITROGEN 15 mg/dL (7-18); eGFR NON AFRICAN AMERICAN 78 mL/min (90-120)
--- NOTE | 2017-01-25 07:16 | NUR ---
REPORT RECEIVED FROM TRANSITIONAL CARE MANAGER NURSE. CALL LIGHT IN REACH.
--- NOTE | 2017-01-25 07:50 | NUR ---
AM MEDS ADMINISTERED. CALL LIGHT IN REACH.
[2017-01-25 08:45] VITALS: BP 123/90
--- NOTE | 2017-01-25 09:23 | NUR ---
ASSESSMENT COMPLETED. BREESYN IVPB. CALL LIGHT IN REACH. REFUSES SCDs. WILL CONTINUE WITH PLAN OF CARE.
--- NOTE | 2017-01-25 11:05 | NUR ---
CONSENT FORM SIGNED AND WITNESSED.
--- NOTE | 2017-01-25 11:25 | NUR ---
TO CT VIA WC.
--- NOTE | 2017-01-25 12:11 | NUR ---
NUTRITION F/U CHART REVIEWED. PT REMAINS NPO. PROCALAMINE @ 125 CC/HR. WILL CONTINUE TO MONITOR PT PROGRESS, PROVIDE DIET WHEN ADVANCED. RD FOLLOWING
[2017-01-25 12:36] VITALS: BP 128/87
--- NOTE | 2017-01-25 13:19 | NUR ---
BACK IN ROOM FROM CT. THEY WERE UNABLE TO REMOVE DRAIN AT THIS TIME. STATES PAIN OF 7 RIGHT NOW. IV FLUIDS AND PATIENT RELATIONS COORDINATOR BACK INFUSING AT THIS TIME.
--- NOTE | 2017-01-25 13:46 | NUR ---
ABSCESS DRAIN FLUSHED WITH 10 CC NS. LIPIDS INITIATED WITH NEW TUBING. TUBING CHANGED TO NS WITH NEW BAG BUT HASN'T BEEN INITIATED YET. ALL TUBING TAGGED WITH APPROPRIATE STICKERS. FAMILY IN ROOM. CALL LIGHT IN REACH.
--- NOTE | 2017-01-25 15:53 | NUR ---
ZOSYN IVPB. NEW BOTTLE OF PROCALAMINE SPIKED WITH NEW TUBING. CALL LIGHT IN REACH.
[2017-01-25 16:47] VITALS: BP 133/91
--- NOTE | 2017-01-25 17:22 | NUR ---
IV FLAGYL ADMINISTERED PIGGYBACK. SIGNIFICANT OTHER IN ROOM. HAS AMBULATED IN HALLWAY AND TOLERATED WELL.
--- NOTE | 2017-01-25 18:13 | NUR ---
NO CHANGES IN INITIAL ASSESSMENT. STILL REFUSES SCDs. CALL LIGHT IN REACH. WILL CONTINUE WITH PLAN OF CARE.
--- NOTE | 2017-01-25 20:45 | NUR ---
PATIENT AWAKE,ALERT. NO COMPLAINTS AT THIS TIME. PETROLEUM TERMINAL PLANT OPERATOR DILAUDID IN USE FOR PAIN CONTROL. IV INFUSING TO RIGHT FOREARM WITHOUT REDNESS OR EDEMA NOTED. ABD DRAIN INTACT.CL IN REACH. VISITORS AT BEDSIDE.
--- NOTE | 2017-01-25 21:30 | NUR ---
PATIENT AMBULATING IN THE GREEN GAIT STEADY. NO SIGNS OF DISTRESS NOTED.
[2017-01-25 21:36] VITALS: BP 134/89
--- NOTE | 2017-01-26 01:48 | NUR ---
RESTING QUIETLY. NO DISTRESS NOTED. CL IN REACH
--- NOTE | 2017-01-26 05:59 | NUR ---
AROUSES EASILY TO VERBAL STIMULI. NO COMPLAINTS VOICED. CL IN REACH
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
[2017-01-26 09:13] VITALS: BP 134/96
--- NOTE | 2017-01-26 11:41 | NUR ---
IV DCD WITH CATH TIP INTACT.DRAIN CARE TEACHING. PT FLUSHED DRAIN HIMSELF WITH TEACHING.DISCHARGE INSTRUCTIONS,STATES UNDERSTANDING.DECLINED WHEELCHAIR,LEFT UNIT AMBULATORY WITH FAMILY AT SIDE.
--- NOTE | 2017-03-24 09:56 | DS ---
PATIENT:DION BENTLEY :71 MEDICAL RECORD: [id number] DISCHARGE SUMMARY ADMISSION DATE: 01/16/17 DISCHARGE DATE: 01/26/17 DATE OF ADMISSION: 01/16/2017. DATE OF DISCHARGE: 01/26/2017. ADMISSION DIAGNOSES: 1. Acute diverticulitis. 2. Ileus. 3. Acute renal failure. DISCHARGE DIAGNOSES: 1. Acute diverticulitis. 2. Ileus. 3. Acute renal failure. 4. Abscess of the sigmoid colon due to diverticulitis. CONSULTATIONS: To interventional radiology. PROCEDURE: CT-guided drain placement on 01/23/2017. REPORT OF HOSPITALIZATION: The patient was admitted to the hospital with the above diagnoses and initially he was started on IV antibiotics and bowel rest. The patient had a very slow course as he had a continued ileus that would not resolve. Eventually, a repeat CT scan was performed that showed that the inflammatory changes had turned into a small abscess. A CT-guided drainage was performed by interventional radiology with removal of about 30 mL of pus. At that point, he began to have significant improvement in his symptoms and eventually his ileus resolved. He was able to be started on a diet, which he tolerated well and was having bowel function. X-ray showed that his ileus had improved and the dilated bowel was coming down to normal. He was eventually set up for discharge home with this drain in place and to continue on IV antibiotics. His cultures grew 2 types of E coli, which were sensitive to most everything except for ampicillin. DISCHARGE INSTRUCTIONS: To return to clinic or call with any questions or concerns, fevers, chills, nausea, vomiting, or worsening abdominal pain. ACTIVITIES: As tolerated. FOLLOWUP: With me in 1-2 weeks and follow up with Dr. Ford with interventional radiology in 2 weeks. DISCHARGE MEDICATIONS: 1. Levaquin 500 mg daily. 2. Flagyl 500 mg q.8 hours. 3. Tramadol 50 mg q.4 hours p.r.n. TRANSINT:[id number] Voice Confirmation ID: [id number] DOCUMENT ID: [id number] DISCHARGE SUMMARY REPORT [id number] SHEREERODRICK PAGE MD at 0956 CC: [id number] DICTATION DATE: 03/09/17 1224 FILTER TIP INSPECTOR: 03/09/17 1623 DIS IN 01/26/17 [facility] [address] [place] [address]
== END 2017-01-26 11:44 | disposition home or self-care (01) | DRG 391 ==
LOC: D.ER 11:56 → D.MS 17:01
PROVIDERS: Family Medicine; Specialist; Surgery; ADMIT Surgery
PROC: 0W9J30Z Drainage of Pelvic Cavity with Drainage Device, Percutaneous Approach (ICD-10-PCS; principal; 2017-01-23 13:00)
PROC: 3E0 Administration, Physiological Systems and Anatomical Regions, Introduction (ICD-10-PCS; 2017-01-25)
DX: K57.20 Diverticulitis of large intestine with perforation and abscess without bleeding (principal); N17.0 Acute kidney failure with tubular necrosis; K56.609 Unspecified intestinal obstruction, unspecified as to partial versus complete obstruction; K56.7 Ileus, unspecified; K21.9 Gastro-esophageal reflux disease without esophagitis; H91.92 Unspecified hearing loss, left ear

== ENCOUNTER 2017-02-14 08:01 | Outpatient (CLI) | payer OTHER ==
[~2017-02-14] VITALS: Ht 185.4 cm; Wt 88.6 kg
--- NOTE | ~2017-02-14 | HEMODYNAMI ---
PATIENT:DION BENTLEY MEDICAL RECORD: [id number] : 71 LOCATION:D.[facility] ADMISSION DATE: 02/14/17 Generatedon:02/14/201710:40 Patient name: DION BENTLEY Patient #: [id number] SSN: D OB: 1975 Date of study: 02/14/2017 Page: Of Hemodynamic Procedure Report Patient Data Patient Demographics Procedure consent was obtained First Name: DION Gender: Male Last Name: SHEREE : 1975 [facility] Initial: E Age: 41 year(s) Patient #: [id number] Race: Unknown Additional ID: [id number] Contact details [address]: [address] [place] [address] [address]IVE State: [place] City: [place] Zip code: [address] Admission Admission Data Admission Date: 02/14/2017 Admission Time: 8:01 Weight (lbs.): 195 Weight (kg.): 88.45 Procedure Procedure Types Cath Procedure Peripheral Cath Diagnostic Procedure Cath Peripheral Abscess Abscessogram Procedure Description Procedure Date Procedure Date: 02/14/2017 Procedure Start Time: 10:31 Procedure Staff Name Function Sultana Crawford RT [facility] Dem[employer]ator Sultana Crawford RT Monitor Aureliano Flores RT Scrub Adán Gupta MD Performing Physician Sridevi Cm RN Nurse Procedure Data Cath Procedure Fluoroscopy Diagnostic fluoroscopy Total fluoroscopy Time: 0.5 time: 0.5 min min Diagnostic fluoroscopy Total fluoroscopy dose: 15 dose: 15 mGy mGy Contrast Material Contrast Material Type Amount (ml) Isovue 300 3 Procedure Medications Medication Administration Route Dosage Fentanyl I.V. 100 mcg Hemodynamics Rest Heart Rate: 84 (bpm) Snapshots Pre Cath Intra NCS Post Cath Vital Signs Time Heart Resp SPO2 NIBP (mmHg) Rhythm Pain Sedation Rate (ipm) (%) Status Level (bpm) 10:13:11 71 14 100 159/106(135) NSR 0 (11) 10(A) , No pain 10:17:34 67 13 100 158/108(135) NSR 0 (11) 10(A) , No pain 10:21:54 75 21 100 163/107(143) NSR 0 (11) 10(A) , No pain 10:26:12 74 9 100 161/109(131) NSR 0 (11) 10(A) , No pain 10:30:34 89 26 100 165/99(137) NSR 0 (11) 10(A) , No pain Medications Time Medication Route Dose Verified Delivered Reason Notes Effectivenes s by by 10:24:02 Fentanyl I.V. 100 Adán Laureano for mcg Alonso Cm RN pain MD Procedure Log Time Note 9:56:23 Patient Weight : 195 lbs 10:02:43 Time tracking: Regular hours 10:11:46 Plan of Care:Hemodynamics will remain stable., Cardiac rhythm will remain stable., Comfort level will be maintained., Respiratory function will remain adequate., Patient/ family verbilizes understanding of procedure., Procedure tolerated without complication., Recovers from procedure without complications.. 10:11:54 Patient received from Outpatients to IR Alert and oriented. Tansferred to table in Supine position. 10:11:57 Correct patient and procedure confirmed by team. 10:11:59 Signed procedure consent form obtained from patient. 10:12:00 ECG and BP/O2 sat monitors applied to patient. 10:12:01 Vital chart was started 10:12:02 Baseline sample Acquired. 10:12:04 Full Disclosure recording started 10:12:05 - 10:12:25 H&P Date Dictated: 02/14/2017 Within 30 days and on chart.. 10:14:42 Family unavailable. 10:14:50 Patient NPO since Midnight. 10:24:02 Fentanyl 100 mcg I.V. was administered by Sridevi Cm RN; for pain; 10:28:09 Is the patient allergic to Iodine/contrast media? No. 10:28:14 ----Pre-sedation anethsthesia assessment.---- 10:28:19 Previous problem with sedation/anesthesia? No ? 10:28:22 Snore? Yes 10:28:24 Sleep apnea? No 10:28:27 Deviated septum? No 10:28:29 Opens mouth fully? Yes 10:28:31 Sticks out tongue? Yes 10:28:34 Airway obstruction? No ? 10:28:38 Dentures? No ? 10:29:00 IV patent on arrival in right forearm with 0.9% NaCl at [facility]. 10:29:11 Right abdomen area was prepped with chlora-prep and draped in sterile fashion 10:29:14 Sharps counted by scrub and verified 10:29:45 Physician arrived 10:30:18 --------ALL STOP TIME OUT------ 10:30:19 Final Timeout: patient, procedure, and site verified with staff and physician. All members of the team are in agreement. 10:31:02 Procedure started. 10:31:19 Use device set IR Diagnostic 10:31:21 Sterile Angiographic Pack opened to sterile field. 10:31:22 Bag Decanter () opened to sterile field. 10:31:30 Cook JOSE .035 15CM guide wire opened to sterile field. 10:32:54 Fluoroscopy time 00.50 minutes. 10:32:58 Fluoroscopy dose: 15 mGy 10:32:58 Flurop Dose total: 15 10:33:03 Procedure ended.(Physican Out) 10:33:22 Contrast amount:Isovue 300 3ml. 10:33:26 Sharps counted by scrub and verified 10:33:37 Procedure and supply charges have been captured, reviewed, submitted an d are correct. 10:34:29 Report given to Outpatients. 10:34:35 Patient transfered to Outpatients with Stretcher. 10:34:37 End room use (Document Last) 10:35:05 Vital chart was stopped 10:35:10 Full Disclosure recording stopped Device Usage Item Name Manufacture Quantity Catalog Hospital Part Current Minimal Lot# / Number Charge Number Stock Stock Serial# Code Sterile Cardinal 1 [id number] Angiographic Health Pack Bag Decanter Microtek 1 [id number] () [employer] Cook JOSE [employer] 1 [id number] .[id number] 15CM guide wire Signature Audit [place] Stage Time Signature Unsigned Intra-Procedure 02/14/2017 Sultana Flores RT 10:35:01 AM RT(R) (R) (CV) 02/14/2017 10:37:14 AM Intra-Procedure 02/14/2017 Sultana Crawford 10:39:58 AM RT(R) Signatures Monitor : Sultana Crawford RT Signature : Date : Time : [facility] [address] [place] [address]
[~2017-02-14 08:01] MED LIST: FLAGYL500 MG; FLAGYL500 MG PO; LEVAQUIN500 MG PO; ULTRAM50 MG PO
[2017-02-14 08:54] LABS: BASOPHILS 0.3 % (0-2); EOSINOPHILS 4.7 % (0-7); HEMATOCRIT 35.2 % (42.0-54.0); HEMOGLOBIN 12.3 g/dL (13.5-17.5); IMMATURE GRANULOCYTES 0.2 % (0-5); MCH 32.3 pg (26.0-34.0); MCHC 34.9 g/dL (31.0-37.0); MCV 92.4 fL (80.0-100.0); MEAN PLATELET VOLUME 9.3 fL (7.4-10.4); MONOCYTES 8.3 % (2-11); NEUTROPHILS 58.5 % (40-80); PLATELET COUNT 270 10x3/uL (130-400); RBC 3.81 10x6/uL (4.20-6.10); RDW 13.7 % (11.5-14.5); WBC 6.4 10x3/uL (4.8-10.8)
[2017-02-14 08:55] VITALS: BP 137/97; Ht 185.4 cm; Wt 88.6 kg
[2017-02-14 09:06] LABS: CALC OSMOLALITY 282 mosm/kg (275-300); CARBON DIOXIDE 25.8 mmol/L (21.0-32.0); CHLORIDE - SERUM 107 mmol/L (98-107); CREATININE - SERUM 1.1 mg/dL (0.6-1.3); GLUCOSE 84 mg/dL (74-106); POTASSIUM - SERUM 3.3 mmol/L (3.5-5.1); SODIUM 142 mmol/L (136-145); UREA NITROGEN 14 mg/dL (7-18); eGFR NON AFRICAN AMERICAN 78 mL/min (90-120)
[2017-02-14 09:07] LABS: APTT 38.9 SECONDS (22.8-39.4); INR 1.07 (0.85-1.17); PROTIME 13.5 SECONDS (11.6-15.0)
--- NOTE | 2017-02-14 12:12 | NUR ---
1135 IV DC WITH CATHER TIP INTACT
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
== END 2017-02-14 12:21 | disposition home or self-care (01) ==
LOC: D.OPS 08:01 → D.CT 09:00 → D.OPS 10:00 → D.RAD 10:00 → D.OPS 12:21
PROVIDERS: Radiology Diagnostic Radiology
DX: Z46.89 Encounter for fitting and adjustment of other specified devices (principal); Z01.812 Encounter for preprocedural laboratory examination

== ENCOUNTER 2017-11-04 18:01 | Emergency (ER) | payer BC ==
[~2017-11-04] VITALS: Ht 185.4 cm; Wt 94.5 kg
[2017-11-04 18:17] VITALS: Ht 185.4 cm; Wt 94.5 kg
[2017-11-04 18:44] LABS: BASOPHILS 0.1 % (0-2); EOSINOPHILS 1.6 % (0-7); HEMATOCRIT 39.8 % (42.0-54.0); HEMOGLOBIN 14.2 g/dL (13.5-17.5); IMMATURE GRANULOCYTES 0.2 % (0-5); LYMPHOCYTES 17.8 % (15-50); MCH 32.2 pg (26.0-34.0); MCHC 35.7 g/dL (31.0-37.0); MCV 90.2 fL (80.0-100.0); MEAN PLATELET VOLUME 9.5 fL (7.4-10.4); MONOCYTES 9.3 % (2-11); PLATELET COUNT 233 10x3/uL (130-400); RBC 4.41 10x6/uL (4.20-6.10); RDW 12.5 % (11.5-14.5); WBC 13.7 10x3/uL (4.8-10.8)
[2017-11-04 18:51] LABS: APPEARANCE CLEAR (CLEAR); BILIRUBIN NEGATIVE (NEGATIVE); COLOR YELLOW (YELLOW); GLUCOSE NEGATIVE (NEGATIVE); KETONE NEGATIVE (NEGATIVE); NITRITE NEGATIVE (NEGATIVE); PROTEIN NEGATIVE (NEGATIVE); SPECIFIC GRAVITY 1.015 (1.005-1.020); UROBILINOGEN NORMAL (NORMAL)
[2017-11-04 18:58] LABS: ALBUMIN 3.7 g/dL (3.4-5.0); ANION GAP 9.6 mmol/L (8-16); BILIRUBIN - TOTAL 0.56 mg/dL (0.2-1.3); CALCIUM 8.5 mg/dL (8.5-10.1); CARBON DIOXIDE 27.9 mmol/L (21.0-32.0); CREATININE - SERUM 1.3 mg/dL (0.6-1.3); POTASSIUM - SERUM 3.5 mmol/L (3.5-5.1); PROTEIN - SERUM 7.5 g/dL (6.4-8.2)
[2017-11-04 20:39] LABS: INR 1.11 (0.85-1.17); PROTIME 13.9 SECONDS (11.6-15.0)
[2017-11-04] MEDS ORDERED: FLAGYL500 MG PO (21:39)
[2017-11-04] MEDS ORDERED: CIPRO500 MG PO (21:39)
[2017-11-04 22:45] VITALS: BP 126/77
== END 2017-11-04 22:46 | disposition home or self-care (01) ==
LOC: D.ER 18:01
PROVIDERS: Family Medicine
DX: K57.92 Diverticulitis of intestine, part unspecified, without perforation or abscess without bleeding (principal); F17.200 Nicotine dependence, unspecified, uncomplicated

== ENCOUNTER 2017-12-25 16:30 | Emergency (ER) | payer BC ==
[~2017-12-25] VITALS: Ht 185.4 cm; Wt 92.5 kg
[~2017-12-25 16:30] MED LIST changes: +CIPRO500 MG PO
[2017-12-25 16:37] VITALS: Ht 185.4 cm; Wt 92.5 kg
[2017-12-25 16:55] LABS: BASOPHILS 0.1 % (0-2); EOSINOPHILS 1.1 % (0-7); HEMATOCRIT 45.8 % (42.0-54.0); HEMOGLOBIN 16.8 g/dL (13.5-17.5); IMMATURE GRANULOCYTES 0.4 % (0-5); LYMPHOCYTES 23.7 % (15-50); MCH 32.9 pg (26.0-34.0); MCHC 36.7 g/dL (31.0-37.0); MCV 89.6 fL (80.0-100.0); MEAN PLATELET VOLUME 9.7 fL (7.4-10.4); MONOCYTES 5.6 % (2-11); NEUTROPHILS 69.1 % (40-80); RBC 5.11 10x6/uL (4.20-6.10); WBC 18.9 10x3/uL (4.8-10.8)
[2017-12-25 16:57] LABS: PLATELET COUNT 350 10x3/uL (130-400)
[2017-12-25 17:16] LABS: ALBUMIN 4.6 g/dL (3.4-5.0); ANION GAP 16.6 mmol/L (8-16); BILIRUBIN - TOTAL 0.72 mg/dL (0.2-1.3); CALCIUM 9.4 mg/dL (8.5-10.1); CARBON DIOXIDE 25.6 mmol/L (21.0-32.0); CREATININE - SERUM 1.5 mg/dL (0.6-1.3); POTASSIUM - SERUM 3.2 mmol/L (3.5-5.1); PROTEIN - SERUM 8.5 g/dL (6.4-8.2)
[2017-12-25] MEDS ORDERED: NORCO 7.5/325 T1 TA1 PO (18:30)
[2017-12-25] MEDS ORDERED: CIPRO500 MG PO (18:32)
[2017-12-25] MEDS ORDERED: FLAGYL500 MG PO (18:32)
[2017-12-25 19:00] VITALS: BP 150/99
== END 2017-12-25 19:00 | disposition home or self-care (01) ==
LOC: D.ER 16:30
PROVIDERS: Family Medicine
DX: K91.89 Other postprocedural complications and disorders of digestive system (principal)